=== PATIENT | female | born 1955 | race African-American/Black ===

== ENCOUNTER 2017-02-01 13:48 | Emergency (ER) | payer MEDICARE, MEDICAID ==
[~2017-02-01] VITALS: Ht 167.6 cm; Wt 120.0 kg
[~2017-02-01 13:48] MED LIST: AMLO10TA4 PO; HYDR25TA GT; LEVO50TA52 PO; LOSA100T3 PO; [UNRECOGNIZED DRUG - CODE]
[2017-02-01 15:18] LABS: BASOPHILS % 0.5 % (0.0-2.0); HEMOGLOBIN. 12.1 g/dL (12.0-16.0); LYMPHOCYTES % 20.2 % (20.0-50.0); MEAN CORPUSCULAR HEMOGLOBIN 25.7 pg (28.0-32.0); MEAN CORPUSCULAR VOLUME 78.4 fL (81.0-99.0); MONOCYTES % 6.5 % (2.0-8.0); NEUTROPHILS % 70.8 % (40.0-76.0); PLATELET 175 x1000/uL (130-400); RED BLOOD CELL COUNT 4.72 mill/uL (4.2-5.4); RED CELL DISTRIBUTION WIDTH 15.1 % (11.6-14.6)
[2017-02-01 15:29] LABS: CARBON DIOXIDE 32 mEq/L (21-32); CHLORIDE 102 mEq/L (98-107)
[2017-02-01 15:34] LABS: PROTHROMBIN TIME 10.8 sec; TROPONIN I < 0.02 ng/mL (0.00-0.04)
[2017-02-01] MEDS ORDERED: ACETAMINOPHEN 325MG TABLET PO ONE (15:45)
[2017-02-01] MEDS ORDERED: POTASSIUM CHLORIDE 20MEQ TABLET SR PO NR (15:45)
[2017-02-01] MEDS ORDERED: HYDROCODONE/ACETAMINOPHEN 5/325MG TABLET PO NR (16:00)
[2017-02-01 16:22] VITALS: BP 112/54
== END 2017-02-01 16:35 | disposition home or self-care (01) ==
LOC: ER 14:21
DX: M79.1 Myalgia (principal); S16.1XXA Strain of muscle, fascia and tendon at neck level, initial encounter; X58.XXXA Exposure to other specified factors, initial encounter; E78.00 Pure hypercholesterolemia, unspecified; I10 Essential (primary) hypertension; Z79.82 Long term (current) use of aspirin
CPT/HCPCS: 36415; 71010; 80053; 83880; 84484; 85025; 85610; 93005; 99285

== ENCOUNTER → 2022-08-19 | Outpatient (CLI) | payer MEDICARE, MEDICAID | END | disposition home or self-care (01) | LOC: RAD 13:05 | PROVIDERS: ATTEND Specialist | DX: Z01.818 Encounter for other preprocedural examination (principal) | CPT/HCPCS: 71046 ==

== ENCOUNTER → 2024-03-30 | Day surgery (SDC) | payer MEDICARE, MEDICAID ==
[~2024-03-30] VITALS: Ht 167.6 cm; Wt 133.4 kg
[~2024-03-30] MED LIST changes: +ALBU18HF2 IH; +CALC-1139 PO; +CEFAZOLIN SODIUM 1000MG/VIAL ONE; +CHOL500010 PO; +DIAZ-570 PO; +FENTANYL CITRATE/PF 50MCG/ML 2ML VIAL IV PRN; +FENTANYL CITRATE/PF 50MCG/ML 2ML VIAL ONE; +HYDR-4005 PO; +HYDR25TA PO; +KETOROLAC 15MG/ML VIAL IV ONE; +LEVO200C2 PO; +LIDOCAINE HCL 1% 10 MG/ML 10ML VIAL ONE; +LOSA-415 PO; -LOSA100T3 PO; +METF-414 PO; +ONDANSETRON HCL 4MG/2ML INJ IV PRN; +POTA-354 PO; +PRAV80TA19 PO; +PROP1DRO4 EACHEYE; +PROPOFOL 200MG/20ML VIAL IV ONE; +ROCURONIUM BROMIDE 10MG/ML VIAL 5ML IV ONE; +SODIUM CHLORIDE 0.9% 1,000 ML IV SCH
[2024-03-30 11:09] LABS: BASOPHILS % 0.6 % (0.0-2.0); EOSINOPHILS % 2.1 % (0.0-5.0); HEMATOCRIT. 33.6 % (36.0-48.0); HEMOGLOBIN. 10.5 g/dL (12.0-16.0); MEAN CORPUSCULAR HEMOGLOBIN 25.7 pg (28.0-32.0); MEAN CORPUSCULAR HGB CONC 31.3 g/dL (31.0-37.0); MEAN CORPUSCULAR VOLUME 82.2 fL (81.0-99.0); MONOCYTES % 6.8 % (2.0-8.0); NEUTROPHILS % 68.5 % (40.0-76.0); RED BLOOD CELL COUNT 4.09 mill/uL (4.2-5.4); RED CELL DISTRIBUTION WIDTH 16.6 % (11.6-14.6); WHITE BLOOD COUNT 8.1 x1000/uL (4.5-11.0)
[2024-03-30 11:15] LABS: POTASSIUM 3.6 mEq/L (3.5-5.1)
[2024-03-30 11:16] LABS: CALCIUM 8.4 mg/dL (8.7-10.4)
[2024-03-30 11:18] LABS: DIFFERENTIAL COMMENT 1
[2024-03-30 11:21] LABS: CREATININE 1.4 mg/dL (0.6-1.0)
[2024-03-30 11:25] LABS: INR 0.9; PARTIAL THROMBOPLASTIN TIME < 21.0 sec (23.4-31.0); PROTHROMBIN TIME 10.6 sec (9.6-11.0)
[2024-03-30 11:39] LABS: CLARITY URINE CLEAR (CLEAR); COLOR URINE YELLOW (YELLOW); GLUCOSE URINE NEGATIVE (NEGATIVE); KETONES URINE NEGATIVE (NEGATIVE); LEUKOCYTE ESTERASE URINE 2+ (NEGATIVE); NITRITE URINE NEGATIVE (NEGATIVE); OCCULT BLOOD URINE NEGATIVE (NEGATIVE); PH URINE 6.5 (4.5-8.0); PROTEIN URINE NEGATIVE (NEGATIVE); SPECIFIC GRAVITY URINE 1.016 (1.005-1.030)
[2024-03-30 11:54] LABS: BACTERIA URINE 1+; RBC URINE 0-2 /hpf (0-2); SQUAMOUS EPITHELIAL CELL URINE 1+ /lpf (RARE/1+); YEAST URINE NONE SEEN
[2024-03-30 12:08] LABS: PLATELET 140 x1000/uL (130-400)
[2024-03-30] MEDS: LACTATED RINGERS 1,000 ML IV SCH (12:09)
[2024-03-30 14:48] VITALS: BP 114/63; PULSE 84; RESP 15
[2024-03-30] MEDS: HYDROMORPHONE HCL/PF 1MG/ML INJ IV PRN (14:48)
== END | disposition home or self-care (01) ==
LOC: OR 10:11
PROVIDERS: ATTEND Urology
DX: N20.0 Calculus of kidney (principal); E11.9 Type 2 diabetes mellitus without complications; Z79.84 Long term (current) use of oral hypoglycemic drugs; Z79.899 Other long term (current) drug therapy; Z79.01 Long term (current) use of anticoagulants; Z98.890 Other specified postprocedural states; Z82.49 Family history of ischemic heart disease and other diseases of the circulatory system; Z83.3 Family history of diabetes mellitus; Z88.8 Allergy status to other drugs, medicaments and biological substances
CPT/HCPCS: 50590; 80048; 81003; 85025; 85610; 85730; 36415; 36573; 71045; 93005; J3010; J0690; J3490 ×2; J2704; J1170; C1725; C1751; C1769

== ENCOUNTER 2024-06-27 06:40 | Day surgery (SDC) | payer MEDICARE, MEDICAID ==
[~2024-06-27] VITALS: Ht 167.6 cm; Wt 132.4 kg
[~2024-06-27 06:40] MED LIST changes: +ACET-2502 PO; -CEFAZOLIN SODIUM 1000MG/VIAL ONE; -FENTANYL CITRATE/PF 50MCG/ML 2ML VIAL IV PRN; -FENTANYL CITRATE/PF 50MCG/ML 2ML VIAL ONE; -HYDR25TA GT; -KETOROLAC 15MG/ML VIAL IV ONE; -LEVO50TA52 PO; -LIDOCAINE HCL 1% 10 MG/ML 10ML VIAL ONE; +METH-819 PO; -ONDANSETRON HCL 4MG/2ML INJ IV PRN; -PROPOFOL 200MG/20ML VIAL IV ONE; -ROCURONIUM BROMIDE 10MG/ML VIAL 5ML IV ONE; -SODIUM CHLORIDE 0.9% 1,000 ML IV SCH; +TAMS-11 PO; -[UNRECOGNIZED DRUG - CODE]
[2024-06-27 07:07] LABS: BASOPHILS % 0.5 % (0.0-2.0); EOSINOPHILS % 2.1 % (0.0-5.0); HEMATOCRIT. 31.4 % (36.0-48.0); LYMPHOCYTES % 19.5 % (20.0-50.0); MEAN CORPUSCULAR HEMOGLOBIN 25.8 pg (28.0-32.0); MEAN CORPUSCULAR VOLUME 80.6 fL (81.0-99.0); MONOCYTES % 7.9 % (2.0-8.0); PLATELET 192 x1000/uL (130-400); RED BLOOD CELL COUNT 3.89 mill/uL (4.2-5.4); RED CELL DISTRIBUTION WIDTH 16.8 % (11.6-14.6); WHITE BLOOD COUNT 5.6 x1000/uL (4.5-11.0)
[2024-06-27 07:12] LABS: POTASSIUM 3.8 mEq/L (3.5-5.1)
[2024-06-27 07:14] LABS: CALCIUM 8.6 mg/dL (8.7-10.4)
[2024-06-27 07:18] LABS: CREATININE 1.4 mg/dL (0.6-1.0)
[2024-06-27 07:56] LABS: CLARITY URINE CLEAR (CLEAR); COLOR URINE YELLOW (YELLOW); GLUCOSE URINE NEGATIVE (NEGATIVE); KETONES URINE NEGATIVE (NEGATIVE); NITRITE URINE NEGATIVE (NEGATIVE); OCCULT BLOOD URINE NEGATIVE (NEGATIVE); PH URINE 7.5 (4.5-8.0); PROTEIN URINE NEGATIVE (NEGATIVE); SPECIFIC GRAVITY URINE 1.014 (1.005-1.030); UROBILINOGEN URINE 0.2 E.U./dL (0.2-1.0)
[2024-06-27 07:57] LABS: LEUKOCYTE ESTERASE URINE 2+ (NEGATIVE)
[2024-06-27] MEDS ORDERED: SODIUM CHLORIDE 0.9% 1,000 ML IV SCH (08:00)
[2024-06-27] MEDS ORDERED: LACTATED RINGERS 1,000 ML IV SCH (08:00)
[2024-06-27 08:14] LABS: SQUAMOUS EPITHELIAL CELL URINE 1+ /lpf (RARE/1+)
[2024-06-27 08:15] LABS: BACTERIA URINE 3+; RBC URINE 0-2 /hpf (0-2); WBC URINE 0-2 /hpf (0-2)
[2024-06-27] MEDS ORDERED: ACETAMINOPHEN 1000MG/100ML 100 ML IV ONE (08:51)
[2024-06-27] MEDS ORDERED: LIDOCAINE HCL 1% 10 MG/ML 10ML VIAL ONE (09:09)
[2024-06-27] MEDS ORDERED: PROPOFOL 200MG/20ML VIAL IV ONE (09:13)
[2024-06-27] MEDS ORDERED: SUCCINYLCHOLINE CHLORIDE 200MG/10ML IV ONE (09:15)
[2024-06-27] MEDS ORDERED: FENTANYL CITRATE/PF 50MCG/ML 2ML VIAL ONE (11:38)
[2024-06-27] MEDS ORDERED: DEXAMETHASONE 4MG/ML 1ML VIAL ONE (11:43)
[2024-06-27] MEDS ORDERED: ONDANSETRON HCL 4MG/2ML INJ ONE (11:43)
[2024-06-27] MEDS ORDERED: EPHEDRINE SULFATE 50MG/ML VIAL ONE (11:46)
[2024-06-27] MEDS ORDERED: FENTANYL CITRATE/PF 50MCG/ML 2ML VIAL IV PRN (12:15)
[2024-06-27] MEDS ORDERED: MEPERIDINE HCL/PF 25MG/ML CPJ IV PRN (12:15)
[2024-06-27] MEDS ORDERED: HYDROMORPHONE HCL/PF 1MG/ML INJ IV PRN (12:15)
[2024-06-27] MEDS ORDERED: ONDANSETRON HCL 4MG/2ML INJ IV PRN (12:30)
[2024-06-27] MEDS ORDERED: KETOROLAC 15MG/ML VIAL IV ONE (13:30)
[2024-06-27] MEDS: OXYBUTYNIN CHLORIDE 5MG TABLET PO SCH (14:30)
== END 2024-06-27 15:15 | disposition home or self-care (01) ==
LOC: OR 06:40
PROVIDERS: ATTEND Urology
DX: N13.2 Hydronephrosis with renal and ureteral calculous obstruction (principal); I11.9 Hypertensive heart disease without heart failure; E11.9 Type 2 diabetes mellitus without complications; J44.9 Chronic obstructive pulmonary disease, unspecified; M19.90 Unspecified osteoarthritis, unspecified site; Z82.49 Family history of ischemic heart disease and other diseases of the circulatory system; Z83.3 Family history of diabetes mellitus; Z87.891 Personal history of nicotine dependence; Z96.659 Presence of unspecified artificial knee joint; Z79.899 Other long term (current) drug therapy; Z98.890 Other specified postprocedural states
CPT/HCPCS: 52356; 71045 ×2; 80048; 81003; 85025; 36415; 88300; 82360; 74430; 36573; C2617; J3010; J0131; J1100; J3490 ×2; J2405; J2704; J0330; A4663; A4215; C1769 ×3; C1725; C1758; C1751; J8499; 76000; J2003